=== PATIENT | male | born 1955 | race Asian ===

== ENCOUNTER 2020-03-06 06:54 | Outpatient (REF) | payer OTHER, SELFPAY ==
[2020-03-06 08:20] LABS: PSA,Total (Free>4and<10) 3.55 ng/mL (0.00-4.00)
== END 2020-03-06 06:55 | disposition home or self-care (01) ==
LOC: HO.LAB 06:54
PROVIDERS: PCP Internal Medicine; Visit Provider Urology
DX: R97.20 Elevated prostate specific antigen [PSA] (principal)
CPT/HCPCS: 84153

== ENCOUNTER → 2020-03-27 14:31 | Outpatient (BNVA) | payer OTHER, SELFPAY | PROVIDERS: Visit Provider Urology | DX: R97.20 Elevated prostate specific antigen [PSA] (principal) | CPT/HCPCS: 52000; 81002 ==

== ENCOUNTER → 2020-09-26 14:41 | Outpatient (BNVA) | payer OTHER, SELFPAY | PROVIDERS: Visit Provider Urology | DX: N40.0 Benign prostatic hyperplasia without lower urinary tract symptoms (principal); R97.20 Elevated prostate specific antigen [PSA]; R31.9 Hematuria, unspecified; Z85.51 Personal history of malignant neoplasm of bladder | CPT/HCPCS: 52000 ==

== ENCOUNTER 2021-04-19 08:45 | Outpatient (REF) | payer OTHER, SELFPAY ==
[2021-04-19 09:58] LABS: Prostate Specific Antigen 6.36 ng/mL (<0.05-4.0)
== END 2021-04-19 08:46 | disposition home or self-care (01) ==
LOC: HO.LAB 08:45
PROVIDERS: PCP Internal Medicine; Visit Provider Urology
DX: Z12.5 Encounter for screening for malignant neoplasm of prostate (principal); R97.20 Elevated prostate specific antigen [PSA]
CPT/HCPCS: 36415; 84153

== ENCOUNTER 2021-05-01 10:32 | Outpatient (REF) | payer OTHER, SELFPAY ==
[2021-05-01 16:41] LABS: Urine Cytology See Pathology rpt
== END 2021-05-01 10:33 | disposition home or self-care (01) ==
LOC: HO.LAB 10:32
PROVIDERS: Visit Provider Urology
DX: N40.0 Benign prostatic hyperplasia without lower urinary tract symptoms (principal); R97.20 Elevated prostate specific antigen [PSA]; Z85.51 Personal history of malignant neoplasm of bladder
CPT/HCPCS: 52000; 88112

== ENCOUNTER 2021-09-29 07:06 | Outpatient (REF) | payer MEDICARE, SELFPAY ==
[2021-09-29 08:33] LABS: PSA,Total (Free>4and<10) 3.81 ng/mL (0.00-4.00)
== END 2021-09-29 07:07 | disposition home or self-care (01) ==
LOC: HO.LAB 07:06
PROVIDERS: PCP Internal Medicine; Visit Provider Urology
DX: Z12.5 Encounter for screening for malignant neoplasm of prostate (principal); N13.8 Other obstructive and reflux uropathy; N40.1 Benign prostatic hyperplasia with lower urinary tract symptoms
CPT/HCPCS: 36415; 84153

== ENCOUNTER 2021-10-30 08:54 | Outpatient (REF) | payer MEDICARE, SELFPAY ==
[2021-10-30 15:52] LABS: Urine Cytology See Pathology rpt
== END 2021-10-30 08:55 | disposition home or self-care (01) ==
LOC: HO.LAB 08:54
PROVIDERS: Visit Provider Urology
DX: N40.0 Benign prostatic hyperplasia without lower urinary tract symptoms (principal); R97.20 Elevated prostate specific antigen [PSA]; C67.9 Malignant neoplasm of bladder, unspecified; Z85.51 Personal history of malignant neoplasm of bladder
CPT/HCPCS: 52000; 88112; 99212

== ENCOUNTER 2022-05-02 08:51 | Outpatient (REF) | payer OTHER, SELFPAY ==
[2022-05-02 17:52] LABS: Urine Cytology See Pathology rpt
== END 2022-05-02 08:52 | disposition home or self-care (01) ==
LOC: HO.LAB 08:51
PROVIDERS: PCP Internal Medicine; Visit Provider Urology
DX: C67.9 Malignant neoplasm of bladder, unspecified (principal)
CPT/HCPCS: 52000; 88112